=== PATIENT | male | born 1965 | race Caucasian/White ===

== ENCOUNTER 2016-11-28 13:54 | Emergency (ER) | payer MEDICARE ==
[2016-11-28 16:29] LABS: ABSOLUTE NEUTROPHIL COUNT 9.8 K/mm3 (1.8-7.7); BASO % 0.3 % (0.2-1.0); EOS # 0.1 (0.0-0.5); HEMATOCRIT 44.4 % (32.0-52.0); HEMOGLOBIN 14.7 gm/l (14.0-18.0); IMM NEUT% 0.3 % (0-1); LYMPH # 0.9 (1.0-4.8); LYMPH % 7.9 % (15-45); MEAN CELL VOLUME 98.7 fl (80.0-94.0); MEAN CORPUSCULAR HEMOGLOBIN 32.7 pg (27.0-31.0); MEAN CORPUSCULAR HGB CONC 33.1 g/dl (33.0-37.0); MONO # 0.9 (0.0-0.8); MONO % 7.9 % (4-12); NEUT % 82.6 % (43-75); PLATELET COUNT 250 K/mm3 (130-400); RED CELL DISTRIBUTION WIDTH 11.4 % (11.5-14.5)
[2016-11-28 16:33] LABS: ALB/GLOB RATIO 1.2 (>1.0); ALBUMIN 4.3 gm/dL (3.5-5.7); CALCIUM 9.6 mg/dL (8.6-10.3)
[2016-11-28 16:43] LABS: C-REACTIVE PROTEIN 6.7 mg/dl (<1.0)
[2016-11-28] MEDS ORDERED: DOXYCYCLINE HYCLATE 100 MG TABLET ONE (17:56)
== END 2016-11-28 18:20 | disposition home or self-care (01) ==
LOC: ED 13:54
DX: L89.329 Pressure ulcer of left buttock, unspecified stage (principal)
CPT/HCPCS: 86141; 85025; 82550; 87070; 80053; 87186 ×2; 85651; 87077 ×2; 99283 ×2; 11042 ×2; A9270